=== PATIENT | female | born 1985 | race Caucasian/White ===

== ENCOUNTER 2018-11-04 06:00 | Inpatient (IN) | payer MEDICAID ==
[~2018-11-04] VITALS: Ht 154.9 cm; Wt 81.1 kg
[~2018-11-04 06:00] MED LIST: CARBOPROST 250 MCG INJ IM PRN; CEFAZOLIN 2 GM/50 ML (PMX) 50 ML IVPB SCH; METHYLERGONOVINE 0.2 MG INJ IM PRN; MISOPROSTOL 200 MCG TAB PR PRN; OXYTOCIN 30 UNITS/LR 500 ML IV PRN
[2018-11-04 06:16] VITALS: Ht 154.9 cm; Wt 81.1 kg
[2018-11-04] MEDS: LACTATED RINGER'S 1,000 ML IV SCH ×2 (06:32→09:23)
--- NOTE | 2018-11-04 07:36 | PREAC ---
Date/Time of Note Date/Time of Note DATE: 11/04/18 TIME: 07:35 Anesthesia Eval and Record Evaluation Time Pre-Procedure Interview DATE: 11/04/18 TIME: 07:35 Age 33 Sex female NPO: 8 hrs Preoperative diagnosis iup at 38 weeks Planned procedure repeat c section Past Medical History Past Medical History: None Surgery & Anesthesia Issues No known issue Meds Anticoagulation: No Beta Sera within 24 hr: No Reason Beta Sera not given: Pt. not on B-Sera Current Medications Lactated Ringer's 1,000 ml @ 125 mls/hr Q8H IV Last administered on 11/04/18at 06:32; Admin Dose 125 MLS/HR; Start 11/04/18 at 05:58 Cefazolin Sodium/ Dextrose 50 ml @ 100 mls/hr ONCE IVPB ; Start 11/04/18 at 06:00 Oxytocin/Lactated Ringer's 500 ml @ 125 mls/hr POST IV ; Start 11/04/18 at 06:00 Oxytocin/Lactated Ringer's 500 ml @ 0 mls/hr ONCE PRN IV .VAGINAL BLEEDING; Start 11/04/18 at 06:00 Methylergonovine Maleate (Methergine) 0.2 mg ONCE PRN IM .VAGINAL BLEEDING; Start 11/04/18 at 06:00 Carboprost Tromethamine (Hemabate) 250 mcg ONCE PRN IM .VAGINAL BLEEDING; Start 11/04/18 at 06:00 Misoprostol (Cytotec) 1,000 mcg ONCE PRN AR .VAGINAL BLEEDING; Start 11/04/18 at 06:00 Meds reviewed: Yes Allergies Coded Allergies: No Known Drug Allergy (Verified Allergy, Unknown, 08/10/08) Allergies Reviewed: Yes Labs/Studies Labs Reviewed: Reviewed by anesthesiologist Result Diagram: 11/04/18 0630 Laboratory Tests 11/04/18 06:30 test: Positive Pre-procedure Exam Airway: Adequate mouth opening, Adequate thyromental dist Mallampati: Mallampati I Teeth: Normal Lung: Normal Heart: Normal ASA Physical Status ASA physical status: 2 Emergency: None Planned Anesthetic Neuraxial: Spinal Planned Pain Management Sub-arachniod narcotics, Parenteral pain med Pre-operative Attestations Prior to commencing anesthesia and surgery, the patient was re-evaluated, there was verification of: *The patient's identity *The results of appropriate recent lab work and preoperative vital signs *The above evaluation not changing prior to induction *Anesthetic plan, risk benefits, alternative and complications discussed with patient/family; questions answered; patient/family understands, accepts and wishes to proceed. AMARIS BRENNAN Nov 04, 2018 07:36
[2018-11-04] MEDS ORDERED: DEXAMETHASONE 4 MG/ML 1 ML INJ ONE (09:29)
[2018-11-04] MEDS ORDERED: ONDANSETRON 4 MG INJ ONE (09:29)
--- NOTE | 2018-11-04 09:32 | HP ---
Date/Time of Note Date/Time of Note DATE: 11/04/18 TIME: 09:29 OB - History Hx of Present Free Text/Dictation 33 YO with IUP at 39 weeks with EDC 11/11/2018 with history of previous delivery x 2, who desires to have repeat delivery and Permanent sterilization. I discussed with the patient the risks, benefits, indications, and alternatives of procedure including but not limited to risks of infection, bleeding, damage to other organs, bowel, bladder, hernia formation, scar formation, possibility of blood transfusion, possible need for emergency hysterectomy, as well as the fact that tubal ligation may fail and there is 1 to 2% risk of failure over lifetime of tubal ligations and the fact that tubal ligation is permanent and irreversible. She was allowed to ask questions. All her questions were answered. Informed consent has been obtained. Care: None Ultrasounds: Normal mid trimester US Obstetrical Complications: None Medical Complications: None Past Family/Social History * Past Medical, Surgical, Family and Obstetric Histories reviewed from chart. OB Admission Exam Physical Exam HEENT: WNL Heart: Rhythm Normal Lungs: Clear, Equal Abdomen: WNL Extremities: Normal Reflexes: Normal Last 72 hours Lab Results CBC & BMP 11/04/18 06:30 OB Assessment/Plan Other Assessment: IUP 39 weeks h/o previous x 2 Desires repeat Desires permanent sterilization Other plan: Repeat Delivery Tubal ligation may be done by either salpingectomy or modified Akanksha BTL SURAJ FLORES MD Nov 04, 2018 09:32
[2018-11-04] MEDS ORDERED: ZOLPIDEM 5 MG TAB PO PRN (10:00)
[2018-11-04] MEDS ORDERED: NALOXONE (0.4 MG/ML) INJ IV PRN (10:00)
[2018-11-04] MEDS ORDERED: ONDANSETRON 4 MG INJ IV PRN (10:00)
[2018-11-04] MEDS ORDERED: HYDROmorphONE 0.5 MG/0.5 ML SYG IV PRN ×2 (10:00)
[2018-11-04] MEDS ORDERED: DIPHENHYDRAMINE 50 MG INJ IV PRN (10:00)
[2018-11-04] MEDS ORDERED: morphine SULFATE/PF (10 MG/10 ML) INJ ONE (10:30)
[2018-11-04] MEDS ORDERED: OXYTOCIN 30 UNITS/LR 500 ML IV ONE (10:33)
[2018-11-04] MEDS ORDERED: LACTATED RINGER'S 1,000 ML IV SCH (10:35)
--- NOTE | 2018-11-04 10:39 | OPR ---
Date/Time of Note Date/Time of Note DATE: 11/04/18 TIME: 10:36 Operative Report Procedure Date: Nov 04, 2018 Preoperative Diagnosis Previous delivery x 2 Desires permanent sterilization Postoperative Diagnosis same Operation/Procedure Performed Repeat delivery Bilateral distal salpingectomies Surgeon Deep Duque MD Track Hoe Operator Dr. Sayra Correa Anesthesia Type: spinal Estimated Blood Loss: other (700) Transfusion none Specimen distal ends of tubes Grafts/Implants none Tubes/Drains Healy Cath Complications none Pt Condition Post Procedure: stable Disposition: PACU Procedure Description The risks, benefits, indications, alternatives of procedure including, but not limited to risk of infection, bleeding, damage to other organs, bowel, bladder, hernia formation, scar formation, possibility of blood transfusions, the risks of tubal ligation such as failure and future pregnancies were discussed with the patient. The fact that BTL is permanent and irreversible also discussed with patient. She was allowed to ask questions. All her questions were answered. Informed consent was obtained. DESCRIPTION OF PROCEDURE: She was taken to the operating room. Spinal anesthesia was induced. She was prepped and draped in the usual sterile fashion. Surgical time out one. Anesthesia was tested to be adequate. With permission from anesthesiologist, a knife was used to make a Pfannenstiel skin incision. The incision was taken down in layers. The fascia was cut, undermined and from the underlying muscle using sharp and blunt dissection. All the bleeders were cauterized. Peritoneum was entered bluntly. A low transverse incision was developed over the uterus. Amniotic fluid was clear and adequate. A viable infant in vertex presentation was delivered without any difficulty. The cord was clamped and cut, handed to awaiting team. Placenta was then deli justyn. Uterus was exteriorized, wrapped around a moist lap. Inside uterus was cleaned using a dry lap. All residual membranes were removed. The uterine incision was then closed using #1 Monocryl in 2 layers. A 5 cm distal end of the right tube was ligated 3 times using 0 plain tie and the ligated portion was cut, sent to pathology. Same procedure was done on the contralateral side. The uterus was inserted back inside the abdominal cavity. Irrigation was done carefully. Careful evaluation of the uterine incision revealed no further bleeding. The tubal ligation sites were evaluated carefully. There was no bleeding. The peritoneum and rectus muscles and fascia were evaluated. All bleeders cauterized. Peritoneum was closed using 2-0 Monocryl. At this time, the count was correct. Rectus muscle was reapproximated using 2-0 Monocryl. Rectus fascia was closed using #1 Vicryl. Subcutaneous tissue was cleaned and irrigated. All bleeders cauterized and the skin closed using Insorb. All counts correct. DEEP DUQUE MD Nov 04, 2018 10:39
--- NOTE | 2018-11-04 10:50 | PAC ---
Date/Time of Note Date/Time of Note DATE: 11/04/18 TIME: 10:49 Post-Anesthesia Notes Post-Anesthesia Note Last documented vital signs temp 97.7 bp 107/67 p 78 O2 sat 98% Activity: WNL Respiratory function: WNL Cardiovascular function: WNL Mental status: Baseline Pain reasonably controlled: Yes Hydration appropriate: Yes Nausea/Vomiting absent: Yes AMARIS BRENNAN Nov 04, 2018 10:50
[2018-11-04] MEDS ORDERED: NA PHOSPHATE/BIPHOS 133 ML ENEMA PR PRN (11:00)
[2018-11-04] MEDS ORDERED: LANOLIN HPA 1 PKT TOP PRN (11:00)
[2018-11-04] MEDS ORDERED: MISOPROSTOL 200 MCG TAB PR PRN (11:00)
[2018-11-04] MEDS: OXYTOCIN 30 UNITS/LR 500 ML IV SCH ×2 (11:14→15:39)
[2018-11-04] MEDS: KETOROLAC 30 MG INJ IV PRN (13:53)
[2018-11-04 16:10] VITALS: BP 122/65; PULSE 61; RESP 18
[2018-11-04 19:50] VITALS: BP 113/59; PULSE 69; RESP 19
[2018-11-04] MEDS: SENNA/DOCUSATE NA (8.6MG/50MG) TAB PO SCH (21:49)
[2018-11-04 23:50] VITALS: BP 116/61; PULSE 65; RESP 18
[2018-11-05] MEDS: LACTATED RINGER'S 1,000 ML IV SCH ×4 (03:16→20:59)
[2018-11-05 03:50] VITALS: BP 109/62; PULSE 65; RESP 19
[2018-11-05] MEDS: KETOROLAC 30 MG INJ IV PRN (06:01)
[2018-11-05 08:10] VITALS: BP 113/72; PULSE 75; RESP 18
[2018-11-05] MEDS: SENNA/DOCUSATE NA (8.6MG/50MG) TAB PO SCH ×2 (10:05→20:58)
[2018-11-05] MEDS: OXYCODONE/ACETAMINOPHEN (5/325) TAB PO PRN ×4 (10:06→22:15)
[2018-11-05] MEDS: IBUPROFEN 600 MG TAB PO SCH ×3 (14:26→23:53)
[2018-11-05 15:45] VITALS: BP 117/69; PULSE 62; RESP 18
[2018-11-05 20:00] VITALS: BP 118/76; PULSE 60; RESP 18
[2018-11-06 04:00] VITALS: BP 108/70; PULSE 77; RESP 17
[2018-11-06] MEDS: OXYCODONE/ACETAMINOPHEN (5/325) TAB PO PRN ×3 (05:13→13:09)
[2018-11-06] MEDS: LACTATED RINGER'S 1,000 ML IV SCH (05:15)
[2018-11-06] MEDS: IBUPROFEN 600 MG TAB PO SCH ×2 (05:44→12:06)
--- NOTE | 2018-11-06 07:45 | DS ---
Date/Time of Note Date/Time of Note DATE: 11/06/18 TIME: 07:44 Obstetrical Discharge Record Final Diagnosis Final Diagnosis: Term not delivered Vaginal Delivery Obstetrical Delivery: Bilateral Tubal Ligation Section Section: Repeat Complications Augmentation: No Induction: No Rupture of Membranes: No Condition on Discharge Physical Assessment Voiding: Yes Bowel Movement: Yes Breast: Soft, non-tender, Filling Fundus: Firm Abdomen and Incision: soft, appropriate tenderness. Incision is clean without any sign of infection Calf Tenderness: No Patient Condition: Good SURAJ FLORES MD Nov 06, 2018 07:45
[2018-11-06 08:34] VITALS: BP 112/67; PULSE 68; RESP 18
--- NOTE | 2018-11-06 09:16 | PAC ---
Date/Time of Note Date/Time of Note DATE: 11/06/18 TIME: 09:15 Post-Anesthesia Notes Post-Anesthesia Note Last documented vital signs Vital Signs Date Temp Pulse Resp B/P (MAP) Pulse Ox O2 O2 Flow FiO2 Time Delivery Rate 11/06/18 97.8 68 18 112/67 Room Air 08:34 (82) 11/05/18 98 03:50 Activity: WNL Respiratory function: WNL Cardiovascular function: WNL Mental status: Baseline Pain reasonably controlled: Yes Hydration appropriate: Yes Nausea/Vomiting absent: Yes Comments satisfactory pain management with intrathecal morphine without complications. AMARIS BRENNAN Nov 06, 2018 09:16
[2018-11-06] MEDS: SENNA/DOCUSATE NA (8.6MG/50MG) TAB PO SCH (09:17)
[2018-11-07] MEDS ORDERED: DIPHTH/TET/ACEL PERTUSS (ADULT) 0.5 ML VIAL IM* ONE (09:00)
[2018-11-07] MEDS ORDERED: MEASLES,MUMPS,RUBELLA VACCINE INJ SC* ONE (09:00)
--- NOTE | 2018-11-12 11:23 | DELSUM ---
Delivery Summary A-C Datetime Report Generated by CPN: 11/12/2018 11:20 DELIVERY PERSONNEL Marketing Officer: Orel, Lynda MATERNAL INFORMATION Delivery Anesthesia: Spinal Medications in Delivery: see anesthesia records Delivery QBL (ml): 700 Placenta Cultured: No Maternal Complications: Other Other Maternal Complications: GDM LABOR SUMMARY EDC: 11/11/2018 00:00 No. Babies in Womb: 1 Attempted: No Labor Anesthesia: None LABOR INFORMATION Reason for Induction: Not Applicable Oxytocin: N/A Group B Beta Strep: Negative Antibiotics # of Doses: ancef 2 gm Antibiotics Time of Last Dose: 11/04/2018 09:40 Steroids Given: None Reason Steroids Not Administered: Not Applicable MEMBRANES Membranes Rupture Method: Artificial Rupture of Membranes: 11/04/2018 09:55 Length of Rupture (hr): 0.00 Amniotic Fluid Color: Clear Amniotic Fluid Amount: Moderate Amniotic Fluid Odor: None STAGES OF LABOR Stage 3 hr: 0 Stage 3 min: 1 CSECTION DELIVERY Primary Indication: Repeat Elective Secondary Indication: N/A CSection Urgency: Elective CSection Incidence: Repeat Labor: N/A Elective: N/A CSection Incision: Lower Uterine Transverse Sterilization Procedure: [place] BABY A INFORMATION Infant Delivery Date/Time: 11/04/2018 09:55 Method of Delivery: Born in Route : No : N/A Forceps: N/A Vacuum Extraction: N/A Shoulder Dystocia : N/A SHOULDER DYSTOCIA BABY A Delivery Date/Time: 11/04/2018 09:55 PRESENTATION/POSITION BABY A Presentation: Cephalic Cephalic Presentation: Vertex Vertex Position: Left Occipital Anterior Breech Presentation: N/A PLACENTA INFORMATION BABY A Placenta Delivery Time : 11/04/2018 09:56 Placenta Method of Delivery: Manual Removal Placenta Status: Delivered SCORES BABY A Heart Rate 1 min: >100 bpm Resp Effort 1 min: Good Cry Reflex Irritability 1 min: Cough/Sneeze/Pulls Away Muscle Tone 1 min: Active Motion Color 1 min: Body [place], Extremit Blue Resuscitation Effort 1 min: Tactile Stimulation SCORE 1 MIN: 9 Heart Rate 5 min: >100 bpm Resp Effort 5 min: Good Cry Reflex Irritability 5 min: Cough/Sneeze/Pulls Away Muscle Tone 5 min: Active Motion Color 5 min: Body [place], Extremit Blue Resuscitation Effort 5 min: Tactile Stimulation SCORE 5 MIN: 9 INFORMATION BABY A Gestational Age at Delivery: 39.0 Gestational Status: Full Term- 39- 40.6 Weeks Infant Outcome : Liveborn Condition : Stable Infant Sex: Male IDENTIFICATION/MEDS BABY A ID Band Number: [id number] ID Band Location: Right Leg; Left Arm Sensor Applied: Yes Sensor Number: [id number] Sensor Location : Cord Clamp Vitamin K Given : Not Given Erythromycin Given: Not Given WEIGHT/LENGTH BABY A Infant Birthweight (gm): 3630 Weight (lb): 8 Weight (oz): 0 Infant Length (in): 20.00 Infant Length (cm): 50.80 CORD INFORMATION BABY A No. Cord Vessels: 3 Nuchal Cord : N/A Cord Blood Taken: Yes Infant Suction: Mouth; Nose ASSESSMENT BABY A Complications: None Physical Findings at Delivery: Within Normal Limits Infant Respirations: Appears Normal Shovel Logger/ALS Called : No Infant Care By: Jethro Cruz RN Transferred To: Remains with Mother
== END 2018-11-06 14:15 | disposition home or self-care (01) | DRG 785 ==
LOC: L-D 06:00 → PP1 16:05
PROVIDERS: ADMIT Specialist; ATTEND Specialist
PROC: 0UB70ZZ Excision of Bilateral Fallopian Tubes, Open Approach (ICD-10-PCS; 2018-11-04)
PROC: 10D00Z1 Extraction of Products of Conception, Low, Open Approach (ICD-10-PCS; principal; 2018-11-04 08:00)
DX: O34.211 Maternal care for low transverse scar from previous cesarean delivery (principal); Z3A.39 39 weeks gestation of pregnancy; Z37.0 Single live birth; Z30.2 Encounter for sterilization
CPT/HCPCS: 82947; 85025; 85610; 85730; 86592; 86850; 86900; 86901; 87340; 88302; 99464; J0690; J1100; J1170; J1885; J2274; J2405; J2590; J7120